=== PATIENT | female | born 1975 | race Hispanic/Latino ===

== ENCOUNTER 2018-08-22 15:31 | Observation (INO) | payer OTHER ==
[~2018-08-22] VITALS: Ht 160 cm; Wt 59.9 kg
[2018-08-22 16:52] LABS: URINE BILIRUBIN - DIPSTICK NEGATIVE (NEGATIVE); URINE BLOOD DIPSTICK LARGE (NEGATIVE); URINE COLOR YELLOW; URINE GLUCOSE - DIPSTICK NEGATIVE (NEGATIVE); URINE KETONE NEGATIVE (NEGATIVE); URINE LEUK ESTERASE NEGATIVE (NEGATIVE); URINE NITRITE - DIPSTICK NEGATIVE (Negative); URINE PH 6.5 (4.5-8.0); URINE PROTEIN - DIPSTICK NEGATIVE (NEG-TRACE); URINE SPECIFIC GRAVITY 1.015; URINE UROBILINOGEN - DIPSTICK 0.2 E.U./dL (0.2)
[2018-08-22 16:54] LABS: HEMATOCRIT 30.5 % (37.0-47.0); HEMOGLOBIN 9.1 g/dl (12.0-16.0); IMMATURE GRANULOCYTES 0.4 % (0.0-5.0); MEAN CELL VOLUME 77.4 fL CALC (80.0-100.0); MEAN CORPUSCULAR HGB 23.1 pG CALC (26.0-32.0); MEAN CORPUSCULAR HGB CONC 29.8 g/L CALC (32.0-36.0); NEUT# 3.21 thou/uL (2.00-7.15); RED BLOOD COUNT 3.94 mill/uL (4.20-5.60); RED CELL DISTRI WIDTH 17.9 % (11.5-15.5)
[2018-08-22] MEDS ORDERED: VISTARIL 50MG C50 M1 PO (16:55)
[2018-08-22] MEDS ORDERED: IRON325 M1 (16:56)
[2018-08-22] MEDS ORDERED: VITAMIN D50000 UNIT (16:56)
[2018-08-22 17:00] LABS: ALKALINE PHOSPHATASE 47 u/l (38-126); ANION GAP 10 (6-22 (CALC)); BILIRUBIN, TOTAL 0.2 mg/dL (0.0-1.4); BUN 9 mg/dL (7-17); BUN/CREATININE RATIO 15 (12-20 (CALC)); CARBON DIOXIDE 26 mmol/l (22-30); CHLORIDE 110 mmol/l (95-108); CREATININE 0.6 mg/dL (0.5-1.0); GFR > 60 ML/MIN (>=60 (CALC)); GFR FOR AFR.AMER. > 60 ML/MIN (>=60 (CALC)); LIPASE 100 u/l (23-300); POTASSIUM 4.4 mmol/l (3.5-5.1); SGOT/AST 28 u/l (14-36); SODIUM 142 mmol/l (137-146)
[2018-08-22 17:02] LABS: URINE CLARITY CLEAR
[2018-08-22 17:09] LABS: URINE SQUAMOUS EPITHELIAL CELL FEW EPI/hpf (0-FEW); URINE WBC 0-2 WBC/hpf (0-5)
[2018-08-22 20:00] VITALS: BP 116/74
[2018-08-23 05:25] VITALS: BP 95/58
[2018-08-23 05:32] LABS: HEMATOCRIT 27.5 % (37.0-47.0); HEMOGLOBIN 8.2 g/dl (12.0-16.0); IMMATURE GRANULOCYTES 0.2 % (0.0-5.0); MEAN CELL VOLUME 76.6 fL CALC (80.0-100.0); MEAN CORPUSCULAR HGB 22.8 pG CALC (26.0-32.0); MEAN CORPUSCULAR HGB CONC 29.8 g/L CALC (32.0-36.0); NEUT# 1.31 thou/uL (2.00-7.15); RED BLOOD COUNT 3.59 mill/uL (4.20-5.60); RED CELL DISTRI WIDTH 17.6 % (11.5-15.5)
[2018-08-23 05:58] LABS: ANION GAP 8 (6-22 (CALC)); BUN 7 mg/dL (7-17); BUN/CREATININE RATIO 13 (12-20 (CALC)); CARBON DIOXIDE 26 mmol/l (22-30); CHLORIDE 113 mmol/l (95-108); CREATININE 0.5 mg/dL (0.5-1.0); GFR > 60 ML/MIN (>=60 (CALC)); GFR FOR AFR.AMER. > 60 ML/MIN (>=60 (CALC)); POTASSIUM 4.5 mmol/l (3.5-5.1); SODIUM 142 mmol/l (137-146)
[2018-08-23 08:52] VITALS: BP 91/49
[2018-08-23] MEDS ORDERED: DEMEROL PO (14:14)
== END 2018-08-23 15:22 | disposition home or self-care (01) ==
LOC: ED 15:31 → ED-I 18:20 → ED 18:49 → MS2 18:50
PROVIDERS: Family Medicine; ADMIT Internal Medicine; ATTEND Internal Medicine
DX: R10.84 Generalized abdominal pain (principal); N92.1 Excessive and frequent menstruation with irregular cycle; D50.0 Iron deficiency anemia secondary to blood loss (chronic); F41.9 Anxiety disorder, unspecified; F31.9 Bipolar disorder, unspecified; G40.909 Epilepsy, unspecified, not intractable, without status epilepticus; Z98.84 Bariatric surgery status
CPT/HCPCS: G0378; J1756; Q9967

== ENCOUNTER 2018-08-26 09:50 | Emergency (ER) | payer SELFPAY ==
[~2018-08-26] VITALS: Ht 160 cm; Wt 50.0 kg
[~2018-08-26 09:50] MED LIST: DEMEROL PO; IRON325 M1; VISTARIL 50MG C50 M1 PO; VITAMIN D50000 UNIT
[2018-08-26] MEDS ORDERED: TYLENOL & COD12.5 ML PO (12:12)
[2018-08-26] MEDS ORDERED: MOTRIN400 MG PO (12:27)
[2018-08-26 12:28] VITALS: BP 118/77
== END 2018-08-26 12:37 | disposition home or self-care (01) | DRG 316 ==
LOC: ED 09:50
DX: T80.1XXA Vascular complications following infusion, transfusion and therapeutic injection, initial encounter (principal); G40.909 Epilepsy, unspecified, not intractable, without status epilepticus; I80.8 Phlebitis and thrombophlebitis of other sites; Y84.8 Other medical procedures as the cause of abnormal reaction of the patient, or of later complication, without mention of misadventure at the time of the procedure

== ENCOUNTER 2019-02-18 09:04 | Emergency (ER) | payer OTHER ==
[~2019-02-18] VITALS: Ht 160 cm; Wt 50.0 kg
[~2019-02-18 09:04] MED LIST changes: +MOTRIN400 MG PO; +TYLENOL & COD12.5 ML PO
[2019-02-18] MEDS ORDERED: CEPHALEXIN500 M1 PO (10:07)
[2019-02-18 10:35] VITALS: BP 122/65
[2019-02-18] MEDS ORDERED: ZOFRAN ODT4 MG PO (17:58)
== END 2019-02-18 10:35 | disposition home or self-care (01) ==
LOC: ED 09:04
DX: D22.72 Melanocytic nevi of left lower limb, including hip (principal); L08.9 Local infection of the skin and subcutaneous tissue, unspecified; S70.312A Abrasion, left thigh, initial encounter; X58.XXXA Exposure to other specified factors, initial encounter

== ENCOUNTER 2019-02-18 16:21 | Emergency (ER) | payer OTHER ==
[~2019-02-18] VITALS: Ht 160 cm; Wt 70.0 kg
[~2019-02-18 16:21] MED LIST changes: +CEPHALEXIN500 M1 PO
[2019-02-18 17:17] LABS: HEMATOCRIT 29.9 % (37.0-47.0); HEMOGLOBIN 8.8 g/dl (12.0-16.0); IMMATURE GRANULOCYTES 0.3 % (0.0-5.0); MEAN CELL VOLUME 76.9 fL CALC (80.0-100.0); MEAN CORPUSCULAR HGB 22.6 pG CALC (26.0-32.0); MEAN CORPUSCULAR HGB CONC 29.4 g/L CALC (32.0-36.0); NEUT# 2.24 thou/uL (2.00-7.15); RED BLOOD COUNT 3.89 mill/uL (4.20-5.60); RED CELL DISTRI WIDTH 19.4 % (11.5-15.5)
[2019-02-18 17:26] LABS: ALBUMIN 4.5 g/dL (3.2-5.0); ALKALINE PHOSPHATASE 62 u/l (38-126); AMYLASE 42 u/l (30-110); ANION GAP 14 (6-22 (CALC)); BILIRUBIN, TOTAL 0.4 mg/dL (0.0-1.4); BUN 14 mg/dL (7-17); BUN/CREATININE RATIO 25 (12-20 (CALC)); CARBON DIOXIDE 24 mmol/l (22-30); CHLORIDE 107 mmol/l (95-108); CREATININE 0.6 mg/dL (0.5-1.0); GFR > 60 ML/MIN (>=60 (CALC)); GFR FOR AFR.AMER. > 60 ML/MIN (>=60 (CALC)); LIPASE 61 u/l (23-300); POTASSIUM 3.8 mmol/l (3.5-5.1); SODIUM 141 mmol/l (137-146); TOTAL PROTEIN 7.6 g/dL (6.3-8.2)
[2019-02-18 17:27] LABS: SGOT/AST 43 u/l (14-36)
[2019-02-18] MEDS ORDERED: ZOFRAN ODT4 MG PO (17:58)
[2019-02-18 18:16] VITALS: BP 116/75
== END 2019-02-18 18:41 | disposition home or self-care (01) ==
LOC: ED 16:21
PROVIDERS: Emergency Medicine
DX: K52.9 Noninfective gastroenteritis and colitis, unspecified (principal); F17.210 Nicotine dependence, cigarettes, uncomplicated; R10.84 Generalized abdominal pain; R11.10 Vomiting, unspecified

== ENCOUNTER 2019-06-05 18:37 | Emergency (ER) | payer OTHER ==
[~2019-06-05] VITALS: Ht 160 cm; Wt 45.0 kg
[~2019-06-05 18:37] MED LIST changes: +ZOFRAN ODT4 MG PO
[2019-06-05] MEDS ORDERED: WELLBUTRIN SR150 MG PO (19:16)
[2019-06-05] MEDS ORDERED: ADDERALL10 MG PO (19:17)
[2019-06-05] MEDS ORDERED: RISPERDAL0.25 MG PO (19:17)
[2019-06-05] MEDS ORDERED: BUSPAR5 MG PO (19:17)
[2019-06-05 19:30] LABS: HEMATOCRIT 29.7 % (37.0-47.0); HEMOGLOBIN 8.8 g/dl (12.0-16.0); IMMATURE GRANULOCYTES 0.2 % (0.0-5.0); MEAN CELL VOLUME 72.4 fL CALC (80.0-100.0); MEAN CORPUSCULAR HGB 21.5 pG CALC (26.0-32.0); MEAN CORPUSCULAR HGB CONC 29.6 g/L CALC (32.0-36.0); NEUT# 3.49 thou/uL (2.00-7.15); RED BLOOD COUNT 4.1 mill/uL (4.20-5.60); RED CELL DISTRI WIDTH 18.4 % (11.5-15.5)
[2019-06-05 19:48] LABS: ALBUMIN 3.9 g/dL (3.2-5.0); ALKALINE PHOSPHATASE 67 u/l (38-126); ANION GAP 13 (6-22 (CALC)); BUN 4 mg/dL (7-17); BUN/CREATININE RATIO 7 (12-20 (CALC)); CARBON DIOXIDE 24 mmol/l (22-30); CHLORIDE 108 mmol/l (95-108); CREATININE 0.6 mg/dL (0.5-1.0); GFR > 60 ML/MIN (>=60 (CALC)); GFR FOR AFR.AMER. > 60 ML/MIN (>=60 (CALC)); LIPASE 86 u/l (23-300); SGOT/AST 25 u/l (14-36); SODIUM 141 mmol/l (137-146); TOTAL PROTEIN 7.1 g/dL (6.3-8.2)
[2019-06-05 19:51] LABS: BILIRUBIN, TOTAL 0.1 mg/dL (0.0-1.4)
[2019-06-05 20:34] LABS: URINE BILIRUBIN - DIPSTICK NEGATIVE (NEGATIVE); URINE BLOOD DIPSTICK NEGATIVE (NEGATIVE); URINE COLOR YELLOW; URINE GLUCOSE - DIPSTICK NEGATIVE (NEGATIVE); URINE KETONE NEGATIVE (NEGATIVE); URINE NITRITE - DIPSTICK NEGATIVE (Negative); URINE PROTEIN - DIPSTICK NEGATIVE (NEG-TRACE); URINE SPECIFIC GRAVITY <=1.005; URINE UROBILINOGEN - DIPSTICK 0.2 E.U./dL (0.2)
[2019-06-05 20:35] LABS: URINE LEUK ESTERASE SMALL (NEGATIVE)
[2019-06-05 20:37] LABS: BARBITURATES NEGATIVE (NEGATIVE); COCAINE NEGATIVE (NEGATIVE); METHADONE NEGATIVE (NEGATIVE); OXCYCODONE NEGATIVE (NEGATIVE); TETRAHYDROCANNABIONOL POSITIVE (NEGATIVE); TRICYLIC ANTIDEPRESSANTS NEGATIVE (NEGATIVE)
[2019-06-05 20:42] LABS: URINE RBC 0-2 RBC/hpf (0-5); URINE SQUAMOUS EPITHELIAL CELL FEW EPI/hpf (0-FEW)
[2019-06-05] MEDS ORDERED: ZPAK PO (21:27)
[2019-06-05] MEDS ORDERED: ULTRAM50 M1 PO (21:27)
[2019-06-05] MEDS ORDERED: ONDANSETRON4 MG PO (21:27)
[2019-06-05 21:47] VITALS: BP 133/71
[2019-06-09] MEDS ORDERED: DOCUSATE CAL240 MG PO (11:11)
== END 2019-06-05 22:00 | disposition home or self-care (01) ==
LOC: ED 18:37
PROVIDERS: Emergency Medicine; Family Medicine
DX: K80.80 Other cholelithiasis without obstruction (principal); J18.9 Pneumonia, unspecified organism; F17.200 Nicotine dependence, unspecified, uncomplicated; R10.84 Generalized abdominal pain; R11.2 Nausea with vomiting, unspecified
CPT/HCPCS: Q9967

== ENCOUNTER 2019-06-24 19:11 | Emergency (ER) | payer OTHER ==
[~2019-06-24] VITALS: Ht 160 cm; Wt 52.2 kg
[~2019-06-24 19:11] MED LIST changes: +ADDERALL10 MG PO; +BUSPAR5 MG PO; +DOCUSATE CAL240 MG PO; +ONDANSETRON4 MG PO; +RISPERDAL0.25 MG PO; +ULTRAM50 M1 PO; +WELLBUTRIN SR150 MG PO; +ZPAK PO
[2019-06-24 20:04] LABS: HEMATOCRIT 31.3 % (37.0-47.0); HEMOGLOBIN 9.1 g/dl (12.0-16.0); IMMATURE GRANULOCYTES 0.2 % (0.0-5.0); MEAN CELL VOLUME 72.5 fL CALC (80.0-100.0); MEAN CORPUSCULAR HGB 21.1 pG CALC (26.0-32.0); MEAN CORPUSCULAR HGB CONC 29.1 g/L CALC (32.0-36.0); NEUT# 2.99 thou/uL (2.00-7.15); RED BLOOD COUNT 4.32 mill/uL (4.20-5.60); RED CELL DISTRI WIDTH 19.1 % (11.5-15.5)
[2019-06-24] MEDS ORDERED: TRILEPTAL150 MG PO (20:04)
[2019-06-24 20:20] LABS: ALBUMIN 4.2 g/dL (3.2-5.0); ALKALINE PHOSPHATASE 53 u/l (38-126); ANION GAP 16 (6-22 (CALC)); BUN 17 mg/dL (7-17); BUN/CREATININE RATIO 21 (12-20 (CALC)); CARBON DIOXIDE 20 mmol/l (22-30); CHLORIDE 107 mmol/l (95-108); CREATININE 0.8 mg/dL (0.5-1.0); GFR > 60 ML/MIN (>=60 (CALC)); GFR FOR AFR.AMER. > 60 ML/MIN (>=60 (CALC)); MAGNESIUM 1.9 mg/dL (1.6-2.3); POTASSIUM 4.1 mmol/l (3.5-5.1); SGOT/AST 42 u/l (14-36); SODIUM 139 mmol/l (137-146); TOTAL PROTEIN 7.5 g/dL (6.3-8.2)
[2019-06-24 20:22] LABS: ACT PARTIAL THROMBO TIME 23.1 SECONDS (20.0-32.5); BILIRUBIN, TOTAL 0.2 mg/dL (0.0-1.4); D-DIMER 0.59 mg/L (0.19-0.60); INTERNATIONAL NORMALIZED RATIO 0.9 RATIO (0.7-1.3); PROTHROMBIN TIME 9.6 SECONDS (9.0-12.5)
[2019-06-24 20:32] LABS: MYOGLOBIN 17 ng/mL (0 - 62)
[2019-06-24 20:34] LABS: URINE BILIRUBIN - DIPSTICK NEGATIVE (NEGATIVE); URINE BLOOD DIPSTICK NEGATIVE (NEGATIVE); URINE COLOR YELLOW; URINE GLUCOSE - DIPSTICK NEGATIVE (NEGATIVE); URINE KETONE NEGATIVE (NEGATIVE); URINE LEUK ESTERASE NEGATIVE (NEGATIVE); URINE NITRITE - DIPSTICK NEGATIVE (Negative); URINE PROTEIN - DIPSTICK NEGATIVE (NEG-TRACE); URINE SPECIFIC GRAVITY 1.015; URINE UROBILINOGEN - DIPSTICK 0.2 E.U./dL (0.2)
[2019-06-24 20:43] LABS: BARBITURATES NEGATIVE (NEGATIVE); COCAINE NEGATIVE (NEGATIVE); METHADONE NEGATIVE (NEGATIVE); OXCYCODONE NEGATIVE (NEGATIVE); TETRAHYDROCANNABIONOL NEGATIVE (NEGATIVE); TRICYLIC ANTIDEPRESSANTS NEGATIVE (NEGATIVE)
[2019-06-24 20:51] LABS: TSH, 3RD GENERATION 1.11 uIU/mL (0.47 - 4.68)
[2019-06-24] MEDS ORDERED: BUSPAR10 M1 PO (21:08)
[2019-06-24] MEDS ORDERED: WELLBUTRIN SR150 MG PO (21:08)
[2019-06-24 22:10] VITALS: BP 111/69
== END 2019-06-24 22:10 | disposition home or self-care (01) ==
LOC: ED 19:11
PROVIDERS: Family Medicine
DX: R06.02 Shortness of breath (principal); F41.9 Anxiety disorder, unspecified; D64.9 Anemia, unspecified; R53.1 Weakness; F17.210 Nicotine dependence, cigarettes, uncomplicated; R42 Dizziness and giddiness; N93.9 Abnormal uterine and vaginal bleeding, unspecified
CPT/HCPCS: J2060

== ENCOUNTER 2020-04-18 12:59 | Emergency (ER) | payer OTHER ==
[~2020-04-18] VITALS: Ht 160 cm; Wt 56.0 kg
[~2020-04-18 12:59] MED LIST changes: +BUSPAR10 M1 PO; +TRILEPTAL150 MG PO
[2020-04-18] MEDS ORDERED: HYDROXYZ HCL50 MG PO (13:32)
[2020-04-18] MEDS ORDERED: TRAZODONE50 MG PO (13:33)
[2020-04-18 13:43] VITALS: BP 128/80
== END 2020-04-18 13:37 | disposition home or self-care (01) ==
LOC: ED 12:59
DX: D50.9 Iron deficiency anemia, unspecified (principal); G40.909 Epilepsy, unspecified, not intractable, without status epilepticus; F17.200 Nicotine dependence, unspecified, uncomplicated; Z98.84 Bariatric surgery status